=== PATIENT | female | born 1950 | race Caucasian/White ===

== ENCOUNTER 2017-08-22 14:00 | Outpatient (CLI) | payer MEDICARE, OTHER | END 2017-08-22 14:01 | disposition home or self-care (01) | LOC: BICBD 14:00 | PROVIDERS: ATTEND Internal Medicine Medical Oncology | DX: M81.8 Other osteoporosis without current pathological fracture (principal); M85.859 Other specified disorders of bone density and structure, unspecified thigh; C50.411 Malignant neoplasm of upper-outer quadrant of right female breast; Z92.21 Personal history of antineoplastic chemotherapy | CPT/HCPCS: 77080 ==

== ENCOUNTER 2017-09-27 07:44 | Outpatient (CLI) | payer MEDICARE ==
--- NOTE | 2017-09-27 13:17 | NM ---
WHOLE BODY BONE SCAN: COMPARISON: 12/27/13. CLINICAL INDICATION: Malignant neoplasm of upper outer quadrant of right breast. FINDINGS: There is redemonstration of asymmetric increased activity at the left lateral aspect of the lower cer vical spine indicating degenerative activity. There are photopenic defects of the anterior chest nyla aterally indicating breast implants. Scattered degenerative change of the axial appendicular skeleto n is present. There is no interval significant focus of radiotracer activity to indicate osseous met astasis. IMPRESSION: 1. Findings most consistent with scattered degenerative change of the osseous structures. 2. No scintigraphic evidence to confirm osseous metastatic disease. POS: [facility]
== END 2017-09-27 07:45 | disposition home or self-care (01) ==
LOC: NM 07:44
PROVIDERS: ATTEND Internal Medicine Medical Oncology
DX: C50.411 Malignant neoplasm of upper-outer quadrant of right female breast (principal); R07.81 Pleurodynia
CPT/HCPCS: 78306; A9503

== ENCOUNTER 2018-01-31 09:38 | Outpatient (CLI) | payer MEDICARE | END 2018-01-31 09:39 | disposition home or self-care (01) | LOC: BICRAD 09:38 | PROVIDERS: ATTEND Podiatrist | DX: M79.671 Pain in right foot (principal); M72.2 Plantar fascial fibromatosis; M77.31 Calcaneal spur, right foot ==

== ENCOUNTER 2018-04-05 10:13 | Emergency (ER) | payer MEDICARE ==
[2018-04-05] MEDS ORDERED: Acetaminophen 500 MG TAB ONE (11:26)
--- NOTE | 2018-04-05 11:27 | RAD ---
LEFT HAND THREE VIEWS: History: Left hand pain, deformity. Injury. FINDINGS: There is a proximally displaced fracture involving the proximal shaft of the proximal phalanx of the ring finger/fourth digit. There is no involvement of the articular surface. There is also a fracture along the proximal shaft of the proximal phalanx of the little finger/fifth digit without significant displacement. IMPRESSION: Fractures of the proximal phalanges of the fourth and fifth digits of the left hand. POS: C
[2018-04-05] MEDS ORDERED: Lidocaine 1% (PF) 30 ML VIAL ONE (13:36)
--- NOTE | 2018-04-05 14:53 | RAD ---
LEFT HAND 3 VIEWS: Date: 04/05/18 HISTORY: 68-year-old female, status post reduction of fourth finger. FINDINGS: There is marked improvement in position and alignment of the proximal phalanx of the fourth finger. A gain noted are slightly comminuted fractures of the base of the proximal phalanges of the fourth and fifth fingers. IMPRESSION: Improvement in position and alignment of the fracture of the proximal phalanx of the fourth finger. S plint material overlies the ulna. POS: [facility]
== END 2018-04-05 15:05 | disposition home or self-care (01) ==
LOC: ERS 10:13
DX: S62.615A Displaced fracture of proximal phalanx of left ring finger, initial encounter for closed fracture (principal); S62.617A Displaced fracture of proximal phalanx of left little finger, initial encounter for closed fracture; Z87.891 Personal history of nicotine dependence; W18.00XA Striking against unspecified object with subsequent fall, initial encounter
CPT/HCPCS: 26725; J2001

== ENCOUNTER 2018-04-11 10:54 | Day surgery (SDC) | payer MEDICARE, OTHER ==
[2018-04-10 17:26] VITALS: BMI 34.2
[2018-04-11] MEDS ORDERED: CEFAZOLIN 2 GM/50 ML BAG ONE (12:00)
[2018-04-11 12:18] LABS: Bilirubin Negative (Negative); Blood, Urine Negative (Negative); Clarity CLEAR (Clear); Glucose, Urine (Dipstick) Negative (Negative); Leukocyte Negative (Negative); Nitrite Negative (Negative); Protein, Urine (Dipstick) Negative (Neg-Trace); Specific Gravity, Urine 1.011 (1.002-1.036); Urobilinogen 0.2 mg/dL (0.2-1.0)
[2018-04-11 12:20] LABS: Bacteria/HPF None Seen HPF (None Seen); Hyaline Casts/LPF 0-3 HYALINE CAST LPF (0-3 Hyaline); Squamous Epithelial None Seen HPF (0-3); WBC/HPF None Seen HPF (0-3)
--- NOTE | 2018-04-11 12:20 | RAD ---
RADIOGRAPH CHEST 1 VIEW: HISTORY: 68-year-old female for pre-operative clearance. FINDINGS: There are no air space densities, pulmonary edema, pneumothorax, or cardiomegaly. The lateral costop hrenic angles are sharp. IMPRESSION: No acute cardiopulmonary findings. jn POS: [facility]
[2018-04-11 13:18] LABS: RBC/HPF 0-3 HPF (0-3)
[2018-04-11] MEDS ORDERED: Dexamethasone 20 MG/5 ML VIAL ONE (16:31)
[2018-04-11] MEDS ORDERED: Ondansetron PF 4 MG/2 ML Vial ONE (16:31)
[2018-04-11] MEDS ORDERED: PROPOFOL 200 MG/20 ML VIAL ONE (16:31)
[2018-04-11] MEDS ORDERED: Ketorolac Tromethamine 30 MG/ML VIAL ONE ×2 (16:31→19:04)
[2018-04-11] MEDS ORDERED: Lidocaine 1% PF 5 ML VIAL ONE (16:31)
[2018-04-11] MEDS ORDERED: Bacitracin Zinc Ointment 30 gm TUBE ONE (16:51)
[2018-04-11] MEDS ORDERED: Bupivacaine PF 0.5% 30 ML VIAL ONE (16:51)
[2018-04-11] MEDS ORDERED: Sodium Chloride 0.9% 0 ML ONE (17:04)
--- NOTE | 2018-04-11 20:40 | RAD ---
RADIOGRAPH LEFT FINGERS THREE VIEWS: 04/11/18 at 6:51 p.m. HISTORY: Acute traumatic fractures. COMPARISON: 04/05/18. FINDINGS: Small field of view fluoroscopic spot images of obtained with C-arm in the OR. There has been interva l placement of double sets of kika-crossing K-wires fixating the fractures of the proximal metadiaph yses of the fourth and fifth proximal phalanges. IMPRESSION: Ongoing pin fixations of the acute, traumatic, mildly displaced fractures of the proximal metaphyses of the left fourth and fifth proximal phalanges. POS: [facility]
--- NOTE | 2018-04-12 17:40 | OP ---
DATE OF PROCEDURE: 04/11/2018 PREOPERATIVE DIAGNOSIS: Left small finger, ring finger proximal phalanx displaced fracture. POSTOPERATIVE DIAGNOSIS: Left small finger, ring finger proximal phalanx displaced fracture. PROCEDURES PERFORMED: 1. Closed reduction of left small finger proximal phalanx fracture with 2 K-wires percutaneous fixation, 0.045 K-wires. 2. Closed reduction and percutaneous pinning, left ring finger proximal phalanx fracture with two 0.045 K-wires. 3. C-arm supervision. 4. Application of short-arm splint in as much MP joint flexion as tolerated. BLOOD LOSS: 2 mL. FINDINGS: Angulated ring finger greater than small finger, proximal phalanx base, proximal one-third fractures. 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 Emergency room splinting allowed for some reduction, but still more angulation in the frontal, sagittal plane than we would like to see to give protection without complication, so we recommended a closed reduction with pin in first try and then if needed, we have to do an open procedure especially at the ring finger. DESCRIPTION OF PROCEDURE: The patient was then prepped and draped. The [facility] did the general anesthesia and I blocked her with 20 mL of 0.5% Marcaine including the small, ring and the long finger. We then performed a closed reduction of the small finger, held it while holding it flexed at the MP joint and then I passed 2 K-wires, obliquely beginning at the base of the proximal small finger while I held it reduced. We then returned our attention to the ring finger. A similar reduction was done except it had to be held near anatomic in the frontal and sagittal plane for rotation because there was somewhat of deficit seen in the bony architecture. Once this was realized, we made several reduction attempts, maintain rotation, passed two 0.045 K-wires across the fracture in the canal in the frontal and sagittal plane. We checked rotation, they were excellent. We bent wires each with a 2 to 3 mm edge, cut it at the skin level, so it could be under the skin to allow this young lady to have motion and some protection for at least 6 weeks. At this point, passively she has 75 degrees of MP joint motion of flexion and nearly full extension indicating a non-intraarticular procedure. Tourniquet was deflated. Then, the wounds were dressed with bacitracin, Adaptic, 4x4. Bulky hand dressing applied, and then a dorsal block splint with MP joint to 70 degrees PIP joint extension. She left the operating room without of evidence of anesthetic complication. Job ID: [id number]
--- NOTE | 2018-04-12 22:00 | EKG ---
Test Reason : PREOP Blood Pressure : / mmHG Vent. Rate : 097 BPM Atrial Rate : 097 BPM P-R Int : 154 ms QRS Dur : 080 ms QT Int : 374 ms P-R-T Axes : 049 -01 036 degrees QTc Int : 474 ms Normal sinus rhythm Normal ECG When compared with ECG of 23-SEP-2010 11:26, Vent. rate has increased BY 40 BPM Confirmed by Felix SHUKLA ([id number]) on 04/12/2018 9:59:56 PM Referred By: ZACHARY Confirmed By:Felix SHUKLA
== END 2018-04-11 20:17 | disposition home or self-care (01) ==
LOC: SDC 10:54
PROVIDERS: ATTEND Orthopaedic Surgery Hand Surgery
PROC: 0PSV34Z Reposition Left Finger Phalanx with Internal Fixation Device, Percutaneous Approach (ICD-10-PCS; principal; 2018-04-11)
PROC: 0PSV34Z Reposition Left Finger Phalanx with Internal Fixation Device, Percutaneous Approach (ICD-10-PCS; 2018-04-11)
DX: S62.617A Displaced fracture of proximal phalanx of left little finger, initial encounter for closed fracture (principal); S62.615A Displaced fracture of proximal phalanx of left ring finger, initial encounter for closed fracture; E78.5 Hyperlipidemia, unspecified; M19.90 Unspecified osteoarthritis, unspecified site; M85.80 Other specified disorders of bone density and structure, unspecified site; E55.9 Vitamin D deficiency, unspecified; Z87.891 Personal history of nicotine dependence; Z85.3 Personal history of malignant neoplasm of breast; Z79.811 Long term (current) use of aromatase inhibitors; Z79.899 Other long term (current) drug therapy; W19.XXXA Unspecified fall, initial encounter
CPT/HCPCS: 71045; 76001; 81001; 93005; 93010; J1100; J1885; J2001; J2405; J2704; J3490; S0020

== ENCOUNTER → 2018-06-02 | Day surgery (SDC) | payer MEDICARE, OTHER ==
[~2018-06-02] MED LIST: Bacitracin Zinc Ointment 30 gm TUBE ONE; Bupivacaine PF 0.5% 30 ML VIAL ONE; CEFAZOLIN 2 GM/50 ML BAG ONE; Dexamethasone 20 MG/5 ML VIAL ONE; Fentanyl 100 MCG/2 ML VIAL ONE; Ketorolac Tromethamine 30 MG/ML VIAL ONE; Lidocaine 1% PF 5 ML VIAL ONE; Midazolam HCl 2 mg/2 ml Vial ONE; PROPOFOL 200 MG/20 ML VIAL ONE; Propofol 500 MG/50 ML VIAL ONE
[2018-06-02 20:18] LABS: #Basophils 0.1 thou/uL (0.0-0.2); #Eosinphils 0.5 thou/uL (0.0-0.7); #Lymphocytes 2.6 thou/uL (1.20-3.40); #Monocytes 0.8 thou/uL (0.11-0.59); #Neutrophils 4.3 thou/uL (1.40-6.50); %Basophils 1.6 % (0.0-1.0); %Eosinophils 5.8 % (0.0-10.0); %Lymphocytes 31.2 % (21.0-51.0); %Monocytes 9.9 % (0.0-10.0); %Neutrophils 51.7 % (42.0-75.0); Hemoglobin 12.9 g/dL (12.0-16.0); Mean Corpuscular HGB CONC 33.4 g/dL (32.0-36.0); Mean Corpuscular Hemoglobin 31.1 pg (27.0-31.0); Mean Platelet Volume 7.1 fL (7.4-10.4); Platelet Count 239 thou/uL (130-400); RBC Distribution Width 11.6 % (11.5-14.5); Red Blood Cell (RBC) Count 4.14 mill/uL (4.20-5.40); White Blood Cell (WBC) Count 8.3 thou/uL (4.8-10.8)
--- NOTE | 2018-06-03 11:31 | RAD ---
LEFT HAND 2 VIEWS: HISTORY: Finger _fracture and pin removal. FINDINGS/IMPRESSION: Two spot fluoroscopic intraoperative images of the left hand demonstrate interval removal of the pins through the proximal metaphysis of the 4th and 5th digits since 04/11/2018. POS: [facility]
--- NOTE | 2018-06-05 13:22 | OP ---
DATE OF PROCEDURE: 06/02/2018 PREOPERATIVE DIAGNOSES: 1. Left ring finger pain with deep wire x1. 2. Left small finger pain with deep wire x1, both in the proximal phalanx with radiographs today showing healed fracture. PROCEDURES PERFORMED: 1. C-arm supervision. 2. Left small finger wire removal, mini-open technique. 3. Left ring finger wire removed, mini-open technique using two separate incisions. TOURNIQUET TIME: 12 minutes. ESTIMATED BLOOD LOSS: 10 mL. FINDINGS: Healed bony P1 fractures of both the small and ring finger of the left side as discussed above. INDICATION: An attempt to remove all 4 of the wires initially placed 7 weeks ago in the clinic, but could not locate 2 of the wires probably secondary to use of copious amounts of local Marcaine. Thus, we brought her to the operating room with C-arm to help us find these and utilize mini incisions. DESCRIPTION OF PROCEDURE: After successful general endotracheal anesthesia, the limb was prepped and draped. We did give 2 mL of 0.5% Marcaine in a field block. Based on what we found on the radiographs on the wires proximal ends of C-arm. The limb was exsanguinated, tourniquet inflated to 250 mmHg pressure. We first approached the small finger wire and using the C-arm, we were able to locate it, made a 5 mm incision and dissected down, and the wire tip was underneath one of the extensor tendon but we found it without destruction of the overlying tendon and removed the wire without complication. The fracture was healed and stable to stress. We then used a different incision, 1 cm long over the area where the C-arm demonstrated the ring finger wire from the proximal end located, found the wire again underneath the extensor tendon. I dissected it free from the tendon without damage to the tendon and then removed without complication. I released the tourniquet, the digit now had passed motion to the palm where before it did not, obtained hemostasis and closed it with interrupted nylon 4-0 suture. Bulky dressing was applied with no splint. There was no malrotation seen and the patient left the operating room without evidence of anesthetic or operative complication. Job ID: [id number]
== END ==
LOC: SDC 19:03
PROVIDERS: ATTEND Orthopaedic Surgery Hand Surgery
PROC: 0RPX0JZ Removal of Synthetic Substitute from Left Finger Phalangeal Joint, Open Approach (ICD-10-PCS; principal; 2018-06-02)
DX: T84.84XA Pain due to internal orthopedic prosthetic devices, implants and grafts, initial encounter (principal); E78.5 Hyperlipidemia, unspecified; Z85.3 Personal history of malignant neoplasm of breast; Z92.21 Personal history of antineoplastic chemotherapy; Z87.891 Personal history of nicotine dependence; Z90.89 Acquired absence of other organs; Z90.13 Acquired absence of bilateral breasts and nipples; Z79.899 Other long term (current) drug therapy; Z98.890 Other specified postprocedural states
CPT/HCPCS: 36415; 76000; 85025; 85652; J1100; J1885; J2001; J2250; J2704; J3010; S0020

== ENCOUNTER 2018-08-23 07:57 | Outpatient (CLI) | payer MEDICARE, OTHER ==
--- NOTE | 2018-08-23 08:48 | BD ---
Exam: DEXA Bone Density History: Post menopausal. Lumbar Spine: BMD (g/cm2) L1 0.982 T-Score: -0.1 L2 0.972 T-Score: -0.5 L3 0.974 T-Score: -1.0 L4 0.982 T-Score: -0.7 L1-L4 0.977 T-Score: -0.6 Femoral Neck: 0.629 T-Score: -2.0 Total Femur: 0.948 T-Score: 0.1 Impression: 1. Osteopenia of the left femoral neck and normal bone mineral density of the lumbar spine. 2. 10-year fracture risk major osteoporotic fracture is 25% and hip fracture 4.3%. These fracture pro babilities are calculated for an untreated patient. POS: [facility]
== END 2018-08-23 07:58 | disposition home or self-care (01) ==
LOC: BICMAMMO 07:57
PROVIDERS: ATTEND Internal Medicine Medical Oncology
DX: M81.8 Other osteoporosis without current pathological fracture (principal); M85.859 Other specified disorders of bone density and structure, unspecified thigh; C50.919 Malignant neoplasm of unspecified site of unspecified female breast
CPT/HCPCS: 77080